=== PATIENT | female | born 1960 | race Caucasian/White ===

== ENCOUNTER 2024-08-13 19:02 | Emergency (ER) | payer MEDICAID ==
[~2024-08-13] VITALS: Ht 162.6 cm; Wt 65.0 kg
[2024-08-13 19:02] VITALS: BP 180/90; PULSE 18; O2SAT 99
[~2024-08-13 19:02] MED LIST: CARB200T2; CARB45TA; COBA5000; PHEN60IN
--- NOTE | 2024-08-13 19:12 | ED.PDOC ---
Musculoskeletal HPI Comments 63-year-old female that came to ER via EMS for right hip pain. Patient states she was taking care of her horses, when she developed sudden onset right hip pain radiating down her right thigh. She denies any recent trauma. States she is unable to put any weight on her right leg. Unable to stand up or ambulate. No shortening or external rotation noted of the right leg. 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 Allergies: Coded Allergies: NO KNOWN ALLERGIES (Unverified , 01/02/12) Home Meds Reported Medications Iron (Feosol) 45 Mg Tab 01/02/12 B12/Cobamamide (B-12) 5,000 Mcg Sub 01/02/12 Carbamazepine (Tegretol-Xr) 200 Mg Tab 01/02/12 Phenobarbital Sodium (Luminal) 60 Mg/Ml Inj 01/02/12 Information Source: Patient, Emergency Med Personnel Mode of Arrival: EMS Location: Right Extremity Location: Hip Timing: Hours Prehospital treatment: None Severity: Moderate Able to Move Extremity: No Bear Weight: No Pain: Moderate Hand Dominance: Right Mechanism: Spontaneous Onset of Symptoms: Spontaneous Symptoms: Pain Associated signs and symptoms: Hip pain (Right) Past Medical History PAST MEDICAL HISTORY: Anemia, Seizures Surgical History: Denies all surgeries Family History Family History: Reviewed,noncontributory to illness Social History Smoker: Non-Smoker Alcohol: Denies ETOH Use Drugs: Denies Drug Use Lives In: Home Constitutional: denies: chills, diaphoresis, fatigue, fever, malaise, sweats, weakness, others EENTM: denies: blurred vision, double vision, ear bleeding, ear discharge, ear drainage, ear pain, ear ringing, eye pain, eye redness, hearing loss, mouth pain, mouth swelling, nasal discharge, nose bleeding, nose congestion, nose pain , photophobia, tearing, throat pain, throat swelling, voice changes, others Respiratory: denies: cough, hemoptysis, orthopnea, SOB at rest, shortness of breath, SOB with excertion, stridor, wheezing, others Cardiovascular: denies: chest pain, dizzy spells, diaphoresis, Dyspnea on exertion, edema, irregular heart beat, left arm pain, lightheadedness, palpitations, PND, syncope, others Gastrointestinal: denies: abdomen distended, abdominal pain, blood streaked bowels, constipated, diarrhea, dysphagia, difficulty swallowing, hematemesis, melena, nausea, poor appetite, poor fluid intake, rectal bleeding, rectal pain, vomiting, others Genitourinary: denies: abnormal vagina bleeding, burning, dyspareunia, dysuria, flank pain, frequency, hematuria, incontinence, pain, , vagina discharge, urgency, others Neurological: denies: dizziness, fainting, headache, left sided numbness, left sided weakness, numbness, paresthesia, pre-existing deficit, right sided numbness, right sided weakness, seizure, speech problems, tingling, tremors, weakness, others Musculoskeletal: reports: joint pain (Right hip); denies: back pain, gout, joint swelling, muscle pain, muscle stiffness, neck pain, others Integumetry: denies: bruises, change in color, change in hair/nails, dryness, laceration, lesions, lumps, rash, wounds, others Allergic/Immunocompromised: denies: Difficulty Healing, Frequent Infections, Hives, Itching, others Hematologic/Lymphatic: denies: anemia, blood clots, easy bleeding, easy bruising, swollen glands, others Endocrine: denies: excessive hunger, excessive sweating, excessive thirst, excessive urination, flushing, intolerance to cold, intolerance to heat, unexplained weight gain, unexplained weight loss, others Psychiatric: denies: anxiety, bipolar disorder, depression, hopeless, panic disorder, schizophrenia, sleepless, suicidal, others Physical Exam General Appearance: No Apparent Distress, Normal HEENT: Normal ENT Inspection, Pharynx Normal, TMs Normal Neck: Full Range of Motion, Non-Tender, Normal, Normal Inspection Respiratory: Chest Non-Tender, Lungs Clear, No Accessory Muscle Use, No Respiratory Distress, Normal Breath Sounds Cardiovascular: No Edema, No JVD, No Murmur, No Gallop, Normal Peripheral Pulses, Regular Rate/Rhythm Breast Exam: Deferred Gastrointestinal: No Organomegaly, Non Tender, No Pulsatile Mass, Normal Bowel Sounds, Soft Genitalia: Deferred Pelvic: Deferred Rectal: Deferred Extremities: No calf tenderness, Normal capillary refill, Normal inspection, Normal range of motion, Non-tender, No pedal edema Musculoskeletal : Apperance: Normal Neurologic: Alert, senior marketing manager II-XII nml as Tested, No Motor Deficits, Normal Affect, Normal Mood, No Sensory Deficits Cerebellar Function: Normal Reflexes: Normal Skin: Dry, Normal Color, Warm Lymphatic: No Adenopathy Was a procedure done? Was a procedure done?: No Differential Diagnosis EXT Differential Diagnosis: Sprain, Dislocation, Strain, Arthritis X-Ray, Labs, Meds, VS Vital Signs Date Time Temp Pulse Resp B/P (MAP) Pulse Ox O2 Delivery O2 Flow Rate FiO2 08/13/24 19:02 97.9 18 18 180/90 (120) 99 Current Medications Medications (Trade) Dose Ordered Sig/Ethel Route Start Time Stop Time Status Last Admin Acetaminophen (Tylenol Tablet Or Capsule) 1,000 mg ONCE ONCE PO 08/13/24 22:45 08/13/24 22:46 DC 08/13/24 22:52 EXAM: XY R FEMUR XRAY CLINICAL HISTORY: right hip pain with fall COMPARISON: None TECHNIQUE: XY R FEMUR XRAY Findings/Impression: 2 views of the right femur. There is no evidence of an acute fracture, dislocation, blastic, or lytic lesions. No radiopaque foreign bodies. No superficial soft tissue abnormalities. EXAM: XY PELVIS AP CLINICAL HISTORY: PAIN S/P FALL COMPARISON: None TECHNIQUE: XY PELVIS AP Findings/Impression: Single frontal view of the pelvis. There is no evidence of an acute fracture, dislocation, blastic, or lytic lesions. No radiopaque foreign bodies. No superficial soft tissue abnormalities. Time of 1ST Reevaluation: 19:08 Reevaluation 1ST: Unchanged Patient Education/Counseling: Diagnosis, Treatment Family Education/Counseling: No Family Present Departure 1 Departure Time of Disposition: 23:00 (Patient likely with hip strain. Patient was offered admission to the hospital however patient and [id number] decided they would go home and follow up with the regular doctor for physical therapy.) Impression: Primary Impression: Strain of right hip Qualified Codes: S76.011A - Strain of muscle, fascia and tendon of right hip, initial encounter Disposition: HOME / SELF CARE / HOMELESS Condition: Stable Referrals: SHILPI CARVER MD Additional Instructions: You have right hip strain. You referred to orthopedics. Please call for an appointment next week. For pain you can take the followinam: Ibuprofen 400mg with food Noon: Acetaminophen 1000mg 4pm: Ibuprofen 400mg with food 8pm: Acetaminophen 1000mg You should follow up with your regular doctor within one week to ensure you are doing better. If your symptoms worsen or you have any other concerns then please return to the ER. 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 Electronically submitted by Ramirez Granda ([email or web address]). I personally scribed for KAMILLE CHOUDHARY MD ([facility]) on 08/13/24 at 20:12. Electronically submitted by Ramirez Granda ([email or web address]). I personally scribed for [facility]ARY [facility] ([facility] on 08/13/24 at 20:53. Electronically submitted by Ramirez Granda ([email or web address]). KAMILLE CHOUDHARY MD Aug 13, 2024 19:12
--- NOTE | 2024-08-13 20:05 | DVH ---
EXAM: XY R FEMUR XRAY CLINICAL HISTORY: right hip pain with fall COMPARISON: None TECHNIQUE: XY R FEMUR XRAY Findings/Impression: 2 views of the right femur. There is no evidence of an acute fracture, dislocation, blastic, or lytic lesions. No radiopaque foreign bodies. No superficial soft tissue abnormalities.
--- NOTE | 2024-08-13 20:06 | DVH ---
EXAM: XY PELVIS AP CLINICAL HISTORY: PAIN S/P FALL COMPARISON: None TECHNIQUE: XY PELVIS AP Findings/Impression: Single frontal view of the pelvis. There is no evidence of an acute fracture, dislocation, blastic, or lytic lesions. No radiopaque foreign bodies. No superficial soft tissue abnormalities.
[2024-08-13] MEDS: ACETAMINOPHEN 500 MG TAB or CAP PO ONE (22:52)
[2024-08-14 00:05] VITALS: RESP 15
== END 2024-08-14 00:27 | disposition home or self-care (01) ==
LOC: ER 19:02 → EDBD 19:02 → EDUNIT# 19:02 → ER 08-14 00:15
DX: S76.011A Strain of muscle, fascia and tendon of right hip, initial encounter (principal); X58.XXXA Exposure to other specified factors, initial encounter; Y93.89 Activity, other specified; Y92.89 Other specified places as the place of occurrence of the external cause; Y99.8 Other external cause status
CPT/HCPCS: 72170